=== PATIENT | female | born 1970 | race Caucasian/White ===

== ENCOUNTER → 2023-04-18 | Day surgery (SDC) | payer OTHER ==
[~2023-04-18] VITALS: Ht 154.9 cm; Wt 80.7 kg
[~2023-04-18] MED LIST: DEXAMETHASONE 4 MG/ML VIAL ONE; HYDROmorphone 1 MG/ML AMP IVP PRN; KETOROLAC 30 MG/ML VIAL ONE; METOCLOPRAMIDE 10 MG/2 ML INJ VIAL ONE; MIDAZOLAM 2 MG/2 ML VIAL ONE; ONDANSETRON 4 MG/2 ML VIAL IVP PRN; ONDANSETRON 4 MG/2 ML VIAL ONE; PROPOFOL 200 MG/20 ML VIAL IV ONE; SEVOFLURANE 250 ML BTL INH ONE; fentaNYL citrate 0.05 MG/ML VIAL ONE
== END | disposition home or self-care (01) ==
LOC: MOR 09:31 → MMU 09:32
PROVIDERS: ATTEND Obstetrics & Gynecology
DX: N92.0 Excessive and frequent menstruation with regular cycle (principal); I10 Essential (primary) hypertension; E66.9 Obesity, unspecified; Z68.33 Body mass index [BMI] 33.0-33.9, adult; Z90.49 Acquired absence of other specified parts of digestive tract
CPT/HCPCS: 58563; J1100; J1885; J2250; J2405; J2704; J2765; J3010